=== PATIENT | female | born 2000 | race Caucasian/White ===

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

== ENCOUNTER → 2022-02-20 | Day surgery (SDC) | payer OTHER | END | disposition home or self-care (01) | LOC: OR 06:15 | DX: J35.8 Other chronic diseases of tonsils and adenoids (principal); J35.1 Hypertrophy of tonsils; F41.9 Anxiety disorder, unspecified; K21.9 Gastro-esophageal reflux disease without esophagitis; F45.8 Other somatoform disorders; Z79.899 Other long term (current) drug therapy | CPT/HCPCS: 82962; 84703; J1100; J2001; J2250; J2405; J2704; J2710; J3010; J7120 ==